=== PATIENT | male | born 1990 | race Caucasian/White ===

== ENCOUNTER 2017-08-10 15:48 | Emergency (ER) | payer SELFPAY ==
[~2017-08-10] VITALS: Ht 177.8 cm; Wt 65.0 kg
[~2017-08-10 15:48] MED LIST: CIPR500T2 PO; METR250 PO; Z.0.NO CURRENT MEDS; ZOFR8TAB4 SL
[2017-08-10 15:55] VITALS: BP 155/80; PULSE 90; RESP 16; TEMP 97.4; O2SAT 99
[2017-08-10] MEDS ORDERED: LIDOCAINE HCL 1% PF 30 ML VIAL INFIL ONE (17:15)
[2017-08-10] MEDS ORDERED: TETANUS/DIPHTHERIA TOXOID ADULT 0.5 ML VIAL IM ONE (17:15)
--- NOTE | 2017-08-10 17:23 | PD ---
HPI Chief Complaint: Laceration/Skin Injury Time Seen by Provider: 17:05 Travel History International Travel<30 days: Yes Contact w/Intl Traveler<30days: Yes Name of Country Traveled to: [facility] Traveled to known affect area: Yes History of Present Illness HPI 37-year-old [id number] male presents to the ED for evaluation of 2/10 right fourth finger pain. Onset just before arrival. Patient states that he caught the tip of the digit between the chain and sprocket of a motorcycle. He denies numbness or tingling or weakness or limitations to range of motion of the extremity. He is unsure of the date of his last tetanus immunization. No treatment attempted before arrival. [facility] Social History Alcohol Use: Yes (4 BEERS DAILY) Tobacco Use: No Allergies-Medications (Allergen,Severity, Reaction): Coded Allergies: No Known Allergies (Verified Allergy, Unknown, 08/10/17) Reported Meds & Prescriptions Reported Meds & Active Scripts Active Keflex (Cephalexin) 500 Mg Cap 500 Mg PO Q6H 7 Days Ibuprofen 800 Mg Tab 800 Mg PO Q8H PRN [place] (Hydrocodone-Acetaminophen) 5 Mg-325 Mg Tab 1 Tab PO Q4H PRN Zofran Odt (Ondansetron HCl) 8 Mg Tab 8 Mg SL Q8 Ciprofloxacin Hcl 500 Mg Tab 500 Mg PO Q12 Flagyl (Metronidazole) 250 Mg Tab 250 Mg PO TID Reported No Current Meds (Miscellaneous Medication) [facility] [place] Review of Systems Except as stated in HPI: all other systems reviewed are Neg Physical Exam Narrative GENERAL: Well-nourished, well-developed white male in no acute distress. SKIN: Focused skin assessment warm/dry. HEAD: Normocephalic. EYES: No scleral icterus. No injection or drainage. NECK: Supple, trachea midline. No JVD or lymphadenopathy. CARDIOVASCULAR: Regular rate and rhythm without murmurs, gallops, or rubs. RESPIRATORY: Breath sounds equal bilaterally. No accessory muscle use. GASTROINTESTINAL: Abdomen soft, non-tender, nondistended. MUSCULOSKELETAL: No cyanosis, or edema. FOCUSED RIGHT UPPER EXTREMITY EXAM: 2+ radial pulse. There is 1.5 cm partial nail avulsion of the right third digit. The laceration extends to the radial side of the finger approximately 0.5 cm no visible foreign body. No active bleeding. Cap refill less than 2 seconds. Tender to palpation of the fingertip. Patient retains full, active ROM of the digits of the extremity. BACK: Nontender without obvious deformity. No CVA tenderness. Data Data Last Documented VS Vital Signs Date Time Temp Pulse Resp B/P (MAP) Pulse Ox O2 Delivery O2 Flow Rate FiO2 08/10/17 15:55 97.4 90 16 155/80 (105) 99 Orders Orders Finger (Tac2wmv) (08/10/17 17:09) Tetanus/Diphtheria Tox Adult (Tetanus/Di (08/10/17 17:15) Lidocaine Pf 1% Inj (Xylocaine-Mpf 1% In (08/10/17 17:15) ^ Insert Iv (08/10/17 18:30) Cefazolin Inj (Ancef Inj) (08/10/17 19:15) Ed Discharge Order (08/10/17 19:29) Mandatory Outpatient Referral (08/10/17 19:54) MDM Medical Decision Making Medical Screen Exam Complete: Yes Emergency Medical Condition: Yes Differential Diagnosis Laceration versus nail avulsion versus tuft fracture versus other Narrative Course 37-year-old [id number] male presents to the ED for evaluation of 2/10 right fourth finger pain. Patient states that he caught the tip of the digit between the chain and sprocket of a motorcycle just before arrival. He denies numbness or tingling or weakness or limitations to range of motion of the extremity. He is unsure of the date of his last tetanus immunization. Vitals reviewed. On exam there is a laceration through the nail bed extending toward the radial aspect of the finger. The distal portion of the nail is gone. There is very minimal bleeding and no visible foreign body. Cap refill is less than 2 seconds and sensation is intact distally. Digital block and laceration repair was performed. See my procedure note for details. Patient was administered 2 g Ancef IV. Tetanus immunization was updated. I spoke with Dr. Brody who recommends outpatient follow-up. Mandatory outpatient consult was placed. Patient is prescribed a course of Keflex, few doses of ibuprofen for pain less than 5 and [place] for pain greater than 5 on the pain scale. He was given detailed wound care instructions. We discussed reasons to return to the ED. He indicated understanding of the instructions and is agreeable to care plan. The patient is stable and discharged home. Procedures Procedure Narrative LACERATION LOCATION: Fourth digit right hand LENGTH: 2 cm NUMBER OF STITCHES/PASTOR: 3 REPAIR: The area of the laceration was prepped with Betadine and sterilely draped. A digital block was performed with 1% lidocaine. Adequate anesthesia was obtained. The wound was copiously irrigated and explored without evidence of foreign body, tendon injury or neurovascular injury. The wound was examined and a blood free field using a tourniquet. The wound was closed using 4-0 chromic and 4-0 Prolene. This was a single layer repair. A sterile dressing was applied. The patient was advised to keep the dressing clean and dry. Patient tolerated the procedure well. Diagnosis Primary Impression: Open fracture of tuft of distal phalanx of finger Additional Impression: Traumatic avulsion of nail plate of finger Qualified Codes: S61.309A - Unspecified open wound of unspecified finger with damage to nail, initial encounter Referrals: Lali Brody MD Departure Forms: Tests/Procedures, Work Release Enter return to work date: Aug 12, 2017 Special Instructions: No use of the right hand until cleared by the hand surgeon. Additional Instructions: Rest, hydrate. Keep the wound clean, dry and covered. A mandatory outpatient consult has been placed on your behalf. A solar sales representative of the hospital or the hand surgeon's office will contact you in the next 5-7 days for an appointment. Begin the antibiotics tomorrow and take them until every dose is gone. Tramadol as prescribed, as needed for pain. Do not drive while taking the tramadol as this may cause drowsiness. Elevating the hand will also help to reduce throbbing pain. If you do not receive a phone call for an appointment call the [facility] patient assistance line. Follow-up with Dr. Brody as discussed. Return to the ED for worsening symptoms or any urgent or emergent medical condition. Med/Other Pt SpecificInfo: Prescription(s) given Scripts Cephalexin (Keflex) 500 Mg Cap 500 MG PO Q6H for Infection for 7 Days, #28 CAP 0 Refills Prov: Armando Obrien MD 08/10/17 Ibuprofen (Ibuprofen) 800 Mg Tab 800 MG PO Q8H Y for PAIN SCALE 1 TO 5, #15 TAB 0 Refills Prov: Armando Obrien MD 08/10/17 Hydrocodone-Acetaminophen ([place]) 5 Mg-325 Mg Tab 1 TAB PO Q4H Y for PAIN GREATER THAN 6, #12 TAB 0 Refills Prov: Armando Obrien MD 08/10/17 Disposition: 01 DISCHARGE HOME Condition: Stable Marielle Gibson Aug 10, 2017 17:23
--- NOTE | 2017-08-10 18:25 | RADRPT ---
EXAM DATE/TIME: 08/10/2017 17:34 [place] COMPARISON: No previous studies available for comparison. INDICATIONS : Right hand fourth digit laceration MEDICAL HISTORY : None. SURGICAL HISTORY : None. ENCOUNTER: Initial ACUITY: 1 day PAIN SCORE: 4/10 LOCATION: Right upper extremity FINDINGS: A tuft avulsion fracture is identified of the distal phalanx of the fourth digit. There is associated soft tissue swelling and injury. Bony structures are otherwise intact. CONCLUSION: Tuft avulsion fracture involving the distal phalanx of the fourth digit. Osman Prieto MD on August 10, 2017 at 18:21 Board Certified Radiologist. This report was verified electronically.
[2017-08-10] MEDS ORDERED: ceFAZolin 2 GM PREMIX 50 ML IV ONE (18:30)
[2017-08-10] MEDS ORDERED: CEFAZOLIN INJ 2,000 MG in SODIUM CHLORIDE 0.9% INJ 100 ML IV ONE (19:15)
[2017-08-10] MEDS ORDERED: IBUP1TAB7 PO (19:28)
[2017-08-10] MEDS ORDERED: NORC5TAB PO (19:28)
[2017-08-10] MEDS ORDERED: CEPH-460 PO (19:29)
== END 2017-08-10 19:57 | disposition home or self-care (01) ==
LOC: NEPK 15:48 → NEPD 19:57
DX: S62.634B Displaced fracture of distal phalanx of right ring finger, initial encounter for open fracture (principal); W31.89XA Contact with other specified machinery, initial encounter; Z79.899 Other long term (current) drug therapy; Z23 Encounter for immunization
CPT/HCPCS: 12001; 73140; 90471; 90714; 96374; 99284; J0690